=== PATIENT | male | born 1950 | race Hispanic/Latino ===

== ENCOUNTER → 2019-01-23 | Outpatient (CLI) | payer MEDICARE ==
[~2019-01-23] MED LIST: REGADENOSON 0.4 MG/5 ML SYR IV ONE
== END ==
LOC: NM 08:01
PROVIDERS: ATTEND Internal Medicine
DX: I25.10 Atherosclerotic heart disease of native coronary artery without angina pectoris (principal); I50.20 Unspecified systolic (congestive) heart failure; R06.02 Shortness of breath; R53.1 Weakness
CPT/HCPCS: 78452; 93017; 93306; A9502; J2785